=== PATIENT | female | born 1955 | race African-American/Black ===

== ENCOUNTER 2016-02-10 00:32 | Emergency (ER) | payer BC ==
[2016-02-10] MEDS ORDERED: DIAZEPAM INJ 10 MG/2 ML DISP.SYRIN IM ONE (01:33)
--- NOTE | 2016-02-10 01:35 | ER Document Report ---
ED General - General Chief Complaint: Cold Symptoms Stated Complaint: DIFFICULTY BREATHING Time seen by provider: 01:30 Notes: Patient is a 60-year-old female that comes emergency department for chief complaint of 4 days of sinus congestion and pressure and productive cough with yellow sputum production. Patient also states that she has a painful muscle in the right side of her neck and shoulder, states that every time she coughs she gets sharp pain in her shoulder. Patient denies any headache, focal numbness or weakness, visual changes. Past medical history of type II diabetes, patient is a former smoker, patient denies asthma or COPD, patient denies any other medical history. TRAVEL OUTSIDE OF THE [place] IN LAST 30 DAYS: No - Related Data Allergies/Adverse Reactions: dextrose [From Metamucil] Allergy (Verified 06/24/15 10:34) psyllium husk [From Metamucil] Allergy (Verified 06/24/15 10:34) psyllium seed [From Metamucil] Allergy (Verified 06/24/15 10:34) saccharin Allergy (Verified 06/24/15 10:34) sucrose [From Metamucil] Allergy (Verified 06/24/15 10:34) Past Medical History - General Information source: Patient - Social History Smoking Status: Former Smoker Frequency of alcohol use: None Drug Abuse: None Lives with: Family Family History: Reviewed & Not Pertinent - Past Medical History Cardiac Medical History: Reports: Hx Hypertension Endocrine Medical History: Reports: Hx Diabetes Mellitus Type 2 Musculoskeltal Medical History: Reports Hx Arthritis Past Surgical History: Reports: Hx Orthopedic Surgery - Left total knee replacement Review of Systems - Review of Systems Constitutional: No symptoms reported EENT: See HPI Cardiovascular: No symptoms reported Respiratory: See HPI Gastrointestinal: No symptoms reported Genitourinary: No symptoms reported Female Genitourinary: No symptoms reported Musculoskeletal: See HPI Skin: No symptoms reported Hematologic/Lymphatic: No symptoms reported Neurological/Psychological: See HPI Physical Exam - Vital signs Vitals: Temp Pulse Resp BP Pulse Ox 98.5 F 72 20 135/58 H 100 02/10/16 00:35 02/10/16 00:35 02/10/16 00:35 02/10/16 00:35 02/10/16 00:35 - General General appearance: Other - Patient does not appear to be in pain, occasionally she coughs and winces - HEENT Head: Normocephalic, Atraumatic Eyes: Normal Conjunctiva: Normal Extraocular movements intact: Yes Eyelashes: Normal Pupils: PERRL Ears: Normal External canal: Normal Tympanic membrane: Serous effusion - Bilateral. No: Purulent effusion Sinus: Frontal - Tenderness, Maxillary - Tenderness Nasal: Other - Very congested with some rhinorrhea and some swollen turbinates Mouth/Lips: Normal Mucous membranes: Normal Pharynx: Erythema - Very mild Neck: Normal - Respiratory Respiratory status: No respiratory distress. No: Respiratory distress, Labored , Tachypnea Chest status: Tender - Mild generalized tenderness Breath sounds: Nonproductive cough - Very rare nonproductive cough - Cardiovascular Rhythm: Regular. No: Tachycardia Heart sounds: Normal auscultation, S1 appreciated, S2 appreciated - Abdominal Inspection: Normal Tenderness: Nontender. No: Tender, Guarding - Back Back: Tender - Very specific point tenderness in a small area which feels like bunched up muscle fibers in the right trapezius muscle, no cervical tenderness noted, no nuchal rigidity, normal upper and lower extremity range of motion, pain with lateral rotation of the neck, normal distal neurovascular exam bilaterally - Extremities General upper extremity: Normal inspection, Nontender, Normal ROM, Normal strength General lower extremity: Normal inspection, Nontender, Normal ROM, Normal strength - Skin Skin irregularity: Abscess - There is an indurated tender erythematous abscess in the left axilla Course - Re-evaluation Re-evalutation: Patient with a very specific painful muscle with palpation over the left trapezius, no nuchal rigidity, examination and presentation is not consistent with vertebral dissection or carotid dissection, patient much improved after Valium. Chest x-ray is unremarkable, patient has tenderness over frontal and maxillary sinuses, patient is very congested, rhinorrhea with some swollen turbinates. No hypoxia, wheezing, respiratory distress, clear lung auscultation , no tachypnea. Patient incidentally also has an abscess in the left axilla which was drained, dressed, patient will be covered with Augmentin for sinusitis/abscess, discussed primary care follow-up and return precautions, patient also will be given Valium for the spasm in her shoulder, patient states satisfaction agreement with plan. - Vital Signs Vital signs: Temp Pulse Resp BP Pulse Ox 98.4 F 62 18 116/71 99 02/10/16 03:47 02/10/16 03:47 02/10/16 03:47 02/10/16 03:47 02/10/16 03:47 Procedures - Incision and Drainage left axilla Type: Single Anesthetic type: 1% Lidocaine mL's of anesthetic: 5 I&D procedure: Sterile dressing applied Incision Method: Incision made by scalpel Amount/type of drainage: about 5 mL's of purulent material, small amount of bloody material Discharge - Discharge Clinical Impression: Cough, Abscess, Neck pain Sinusitis Qualifiers: Sinusitis location: unspecified location Chronicity: acute Recurrence: non- recurrent Qualified Code(s): J01.90 - Acute sinusitis, unspecified Condition: Stable Disposition: HOME, SELF-CARE Additional Instructions: Chest x-ray does not show any abnormality. Take the Augmentin and Flonase for your sinuses as directed. Keep an absorbing clean dressing over the abscess, clean with soap and water, observed for any signs of worsening infection including spreading redness, swelling, fever, etc. Take the Valium if needed for the muscle spasm in the right trapezius/neck muscles. Follow-up with primary care. Return immediately for any concerning or worsening symptoms. Prescriptions: Amox Tr/Potassium Clavulanate [Augmentin 875-125 Tablet] 1 tab PO BID 7 Days Diazepam [Valium 5 mg Tablet] 1 - 2 tab PO TID #20 tablet
[2016-02-10] MEDS ORDERED: LIDOCAINE 1% INJ-PF (10 MG/ML) 30 ML SDV INJ ONE (02:09)
[2016-02-10] MEDS ORDERED: OXYCODONE-ACETAMINOPHEN 5-325 MG TABLET PO ONE (02:10)
[2016-02-10] MEDS ORDERED: AMOXICILLIN TR/POT CLAVULANATE 500-125 MG TAB PO ONE (03:24)
[2016-02-10] MEDS ORDERED: AMOXICILLIN TRIHYDRATE 500 MG CAPSULE PO ONE (03:24)
[2016-02-10] MEDS ORDERED: HYDROCODONE/ACETAMINOPHEN 5-325 MG 6 TAB/DSPK PO PRN (03:25)
[2016-02-10 03:48] VITALS: BP 116/71
== END 2016-02-10 03:47 | disposition home or self-care (01) ==
LOC: ER 00:32
PROC: 0H9CXZZ Drainage of Left Upper Arm Skin, External Approach (ICD-10-PCS; principal; 2016-02-10)
DX: J01.90 Acute sinusitis, unspecified (principal); L02.412 Cutaneous abscess of left axilla; R09.81 Nasal congestion; R05 Cough; J34.89 Other specified disorders of nose and nasal sinuses; M54.2 Cervicalgia; E11.9 Type 2 diabetes mellitus without complications; I10 Essential (primary) hypertension; Z87.891 Personal history of nicotine dependence; Z88.8 Allergy status to other drugs, medicaments and biological substances
CPT/HCPCS: 99283; 96372; 71020; 10060; J3360

== ENCOUNTER → 2018-11-30 | Outpatient (CLI) | payer BC, MEDICARE ==
--- NOTE | 2018-12-01 07:39 | WOMENS IMAGING REPORT ---
EXAM DESCRIPTION: BILAT SCREENING MAMMO W/CAD COMPLETED DATE/TIME: 11/30/2018 10:12 am REASON FOR STUDY: Z12.31 ENCOUNTER FOR SCREENING MAMMOGRAM FOR MALIGNANT NEOPLASM OF BREAST Z12.31 ENCNTR SCREEN MAMMOGRAM FOR MALIGNANT NEOPLASM OF MIAH COMPARISON: 2014 EXAM PARAMETERS: Standard craniocaudal and mediolateral oblique views of each breast recorded using digital acquisition. Read with the assistance of CAD. .[facility] - [employer] Service Observer Chief Version 9.2 LIMITATIONS: None. FINDINGS: Findings present which are benign by mammographic criteria. No suspicious masses, calcifi cations or architectural distortion. Pertinent benign findings: Old stereotactic biopsy clip upper outer quadrant. Benign bilateral breas t parenchymal and skin calcifications. Benign mammographic findings may include one or more of the following: Smooth masses, popcorn/rim/co arse calcifications, asymmetries, post-procedure changes, and lesions with long-standing stability. IMPRESSION: BENIGN MAMMOGRAPHIC FINDINGS. BIRADS 2 BREAST DENSITY: a. The breasts are almost entirely fatty. BIRAD: ASSESSMENT: 2 BENIGN FINDING(S) RECOMMENDATION: ROUTINE SCREENING Please continue yearly bilateral screening mammography/tomosynthesis in November 2019 COMMENT: The patient has been notified of the results by letter per MQSA requirements. Additional no tification policies are in place for contacting patient with suspicious or incomplete findings. Quality ID #225: The [employer] recommends an annual screening mammogram for women aged 40 years or over. This facility utilizes a reminder system to ensure that all patients receive reminder letters, and/or direct phone calls for appointments. This includes reminders for routine scr eening mammograms, diagnostic mammograms, or other Breast Imaging Interventions when appropriate. Th is patient will be placed in the appropriate reminder system. TECHNICAL DOCUMENTATION: FINDING NUMBER: (1) ASSESSMENT: (1) JOB ID: [id number] [facility]- All Rights Reserved Reading location - IP/workstation name: [email or web address]
== END ==
LOC: WI 09:37
PROVIDERS: ATTEND Physician Assistant
DX: Z12.31 Encounter for screening mammogram for malignant neoplasm of breast (principal)
CPT/HCPCS: 77067

== ENCOUNTER 2020-02-13 12:25 | Inpatient (IN) | payer MEDICARE ==
--- NOTE | 2020-02-13 14:26 | ER Document Report ---
ED Medical Screen (RME) - General Chief Complaint: Leg Swelling Stated Complaint: SHORT OF BREATH,LEG PAIN Time Seen by Provider: 02/13/20 14:18 Primary Care Provider: MARY JO SNYDER PA-C [Primary Care Provider] - Follow up as needed Information source: Patient TRAVEL OUTSIDE OF THE [place] IN LAST 30 DAYS: No - HPI Patient complains to provider of: Shortness of breath Notes: 02/13/20 14:24 Patient here with complaints of shortness of breath. The patient was a admitted for Covid pneumonia earlier last month. She continues to have shortness of breath. She went to see her primary care doctor today and was noted to have O2 saturations in the mid 80s and was sent in for evaluation. The patient is also complaining of right leg pain and swelling. No history of blood clots, no blood thinning medications. Patient was treated with Zithromax and prednisone without any improvement. EXAM: No distress, nontoxic appearing. Lungs clear and equal throughout. Heart sounds normal. Pitting edema to the right lower extremity. An initial examination was made on the patient as part of the triage process, and it was determined a more comprehensive evaluation was necessary. Initial labs were ordered and patient was transferred to another provider in the ED who assumed care and finished evaluation and plan. - Related Data Allergies/Adverse Reactions: dextrose [From Metamucil] Allergy (Verified 06/24/15 10:34) psyllium husk [From Metamucil] Allergy (Verified 06/24/15 10:34) psyllium seed [From Metamucil] Allergy (Verified 06/24/15 10:34) saccharin Allergy (Verified 06/24/15 10:34) sucrose [From Metamucil] Allergy (Verified 06/24/15 10:34) Past Medical History - Social History Chew tobacco use (# tins/day): No Frequency of alcohol use: None Drug Abuse: None - Past Medical History Cardiac Medical History: Reports: Hx Hypertension Endocrine Medical History: Reports: Hx Diabetes Mellitus Type 2 Musculoskeltal Medical History: Reports Hx Arthritis Past Surgical History: Reports: Hx Orthopedic Surgery - Left total knee replacement Physical Exam - Vital signs Vitals: Temp Pulse Resp BP Pulse Ox 98.6 F 85 20 141/87 H 94 02/13/20 13:17 02/13/20 13:17 02/13/20 13:17 02/13/20 13:17 02/13/20 13:17 Course - Vital Signs Vital signs: Temp Pulse Resp BP Pulse Ox 98.6 F 85 20 141/87 H 94 02/13/20 13:17 02/13/20 13:17 02/13/20 13:17 02/13/20 13:17 02/13/20 13:17 Doctor's Discharge - Discharge Referrals: MARY JO SNYDER, PA-C [Primary Care Provider] - Follow up as needed
--- NOTE | 2020-02-13 16:22 | RADIOLOGY REPORT (SQ) ---
EXAM DESCRIPTION: VENOUS UNILATERAL LOWER IMAGES COMPLETED DATE/TIME: 02/13/2020 4:12 pm REASON FOR STUDY: recent covid, pain and swelling right leg COMPARISON: None. TECHNIQUE: Dynamic and static robledo scale and color images acquired of the right leg venous system. S elected spectral images acquired with additional compression and augmentation maneuvers. The contrala teral common femoral vein and saphenofemoral junction were also imaged. Images stored on PACS. LIMITATIONS: None. FINDINGS: COMMON FEMORAL: Normal phasicity, compression and augmentation. No visualized echogenic ma terial on robledo scale. No defects on color images. FEMORAL: There is acute thrombus in the distal femoral vein. POPLITEAL: There is acute thrombus in the popliteal vein pure CALF VESSELS: There is acute calf DVT. GSV and SSV: Not assessed. ANY DEEP VENOUS INSUFFICIENCY: Not evaluated. ANY EVIDENCE OF POPLITEAL CYST: No. OTHER: No other significant finding. CONTRALATERAL COMMON FEMORAL VEIN AND SAPHENOFEMORAL JUNCTION: Normal phasicity, compression and augmentation. No visualized echogenic material on robledo scale. No de fects on color images. IMPRESSION: Acute occlusive DVT from the right calf through the distal femoral vein. COMMENT: This report was called to Dr. Garrett At16:00 on 02/13/2020. The report was called by the [place] scular technologist. TECHNICAL DOCUMENTATION: JOB ID: [id number] 2010 [employer]- All Rights Reserved Reading location - IP/workstation name: [email or web address]
[2020-02-13] MEDS ORDERED: ONDANSETRON HCL INJ/PF 4 MG/2 ML SDV IV ONE (16:33)
[2020-02-13] MEDS ORDERED: MORPHINE SULFATE 10 MG/ML INJ IV ONE (16:33)
[2020-02-13] MEDS ORDERED: HEPARIN SOD (PORCINE) 1,000 UNIT/ML 10 ML VIAL IV ONE (16:34)
[2020-02-13] MEDS ORDERED: HEPARIN SODIUM,PORCINE/D5W 25,000 UNIT/250 ML RTUINJ IV PRN (16:34)
[2020-02-13] MEDS ORDERED: NORMAL SALINE 250 ML IV ONE (16:36)
[2020-02-13 16:40] LABS: HEMATOCRIT 39.8 % (36.0-47.0); HEMOGLOBIN 13.2 g/dL (12.0-15.5); MEAN CORPUSCULAR HEMOGLOBIN 27.2 pg (27.0-33.4); MEAN CORPUSCULAR HGB CONC 33.3 g/dL (32.0-36.0); MEAN CORPUSCULAR VOLUME 82 fl (80-97); PLATELET COUNT 210 10^3/uL (150-450); RED BLOOD COUNT 4.87 10^6/uL (3.72-5.28); RED CELL DISTRIBUTION WIDTH 15.8 % (11.5-14.0); WHITE BLOOD COUNT 7.6 10^3/uL (4.0-10.5)
[2020-02-13 16:47] LABS: INTERNATIONAL RATION (INR) 1.06
[2020-02-13 16:48] LABS: PARTIAL THROMBOPLASTIN TIME 26.9 SEC (23.5-35.8)
[2020-02-13 17:01] LABS: ALKALINE PHOSPHATASE 74 U/L (38-126); ANION GAP 6 (5-19); ASPARTATE AMINO TRANSFERASE 20 U/L (14-36); BILIRUBIN,DIRECT 0.2 mg/dL (0.0-0.4); BILIRUBIN,TOTAL 0.7 mg/dL (0.2-1.3); BLOOD UREA NITROGEN 18 mg/dL (7-20); CALCIUM 9.9 mg/dL (8.4-10.2); CARBON DIOXIDE 31 mmol/L (22-30); CHLORIDE 101 mmol/L (98-107); GLUCOSE 159 mg/dL (75-110); POTASSIUM 3.9 mmol/L (3.6-5.0); TOTAL PROTEIN 7.8 g/dL (6.3-8.2)
[2020-02-13 17:05] LABS: D-DIMER 19.57 ug/mL (0.00-0.50)
[2020-02-13 17:12] LABS: NT PRO BNP 66 pg/mL (<125); TROPONIN I < 0.012 ng/mL
[2020-02-13 17:16] LABS: ABSOLUTE LYMPHOCYTES# (MANUAL) 3.2 10^3/uL (0.5-4.7); ABSOLUTE MONOCYTES # (MANUAL) 0.5 10^3/uL (0.1-1.4); BASOPHILS % (MANUAL) 1 % (0-2); EOSINOPHILS % (MANUAL) 0 % (0-6); LYMPHOCYTES % (MANUAL) 40 % (13-45); MONOCYTES % (MANUAL) 7 % (3-13); SEGMENTED NEUTROPHILS % (MAN) 50 % (42-78); TOTAL CELLS COUNTED 100
[2020-02-13 17:17] LABS: HYPOCHROMASIA 1+
[2020-02-13 17:18] LABS: PLATELET COMMENT ADEQUATE
--- NOTE | 2020-02-13 17:42 | RADIOLOGY REPORT (SQ) ---
EXAM DESCRIPTION: CTA CHEST IMAGES COMPLETED DATE/TIME: 02/13/2020 5:28 pm REASON FOR STUDY: COVID, SOB, Hypoxia COMPARISON: None. TECHNIQUE: CT scan of the chest performed using helical scanning technique with dynamic intravenous contrast injection. Images reviewed with lung, soft tissue and bone windows. Reconstructed coronal and sagittal MPR images reviewed. Additional 3 dimensional post-processing performed to develop Maximal Intensity Projection images ([place] P). All images stored on PACS. All CT scanners at this facility use dose modulation, iterative reconstruction, and/or weight based d osing when appropriate to reduce radiation dose to as low as reasonably achievable (ALARA). [facility]: Dose Right [facility]: CareDose [facility]: Dose Right [facility]: Teradose 4D [facility]: Dtime CONTRAST TYPE AND DOSE: contrast/concentration: Isovue 350.00 mmol/ml; Total Contrast Delivered: 74. 0 ml; Total Saline Delivered: 70.0 ml Contrast bolus optimized for the pulmonary arteries. Not diagnostic for the aorta. RENAL FUNCTION: BUN 18 creatinine 1.09 RADIATION DOSE: CT Rad equipment meets quality standard of care and radiation dose reduction techniq ues were employed. CTDIvol: 11.3 - 15.5 mGy. DLP: 632 mGy-cm. . LIMITATIONS: None. FINDINGS: LUNGS AND PLEURA: Ill-defined ground-glass infiltrates are present bilaterally. No pleura l effusion. No mass. AORTA AND GREAT VESSELS: No aneurysm. Contrast bolus not optimized for the aorta. HEART: No pericardial effusion. No significant coronary artery calcifications. PULMONARY ARTERIES: Emboli are present in the right main pulmonary artery and in lower lobe segmental branches and in right upper lobe branches. HILAR AND MEDIASTINAL STRUCTURES: There are some small nonspecific mediastinal nodes. HARDWARE: None in the chest. UPPER ABDOMEN: Small gallstones are present. THYROID AND OTHER SOFT TISSUES: No masses. No adenopathy. BONES: No acute or significant finding. 3D MIPS: Confirm above findings. OTHER: No other significant finding. IMPRESSION: 1. Acute pulmonary embolism involving right-sided pulmonary arteries as described. Mod erate clot burden. 2. Bilateral ground-glass infiltrates consistent with the history of COVID-19 pneumonia. COMMENT: Quality ID # [id number]: Final reports with documentation of one or more dose reduction techniques (e.g., Automated exposure control, adjustment of the mA and/or kV according to patient size, use of iterative reconstruction technique) TECHNICAL DOCUMENTATION: JOB ID: [id number] 2010 [employer]- All Rights Reserved Reading location - IP/workstation name: [email or web address]
[2020-02-13] MEDS ORDERED: DEXTROSE 50%-WATER 25 GM/50 ML DISP.SYRIN IV PRN ×2 (18:36)
[2020-02-13] MEDS ORDERED: ACETAMINOPHEN 325 MG TABLET PO PRN (18:36)
[2020-02-13] MEDS ORDERED: ONDANSETRON HCL INJ/PF 4 MG/2 ML SDV IV PRN (18:36)
[2020-02-13] MEDS ORDERED: GLUCAGON,HUMAN RECOMB 1 MG INJ IM PRN (18:36)
[2020-02-13] MEDS ORDERED: DEXTROSE 40% GEL 15 GM TUBE PO PRN ×2 (18:36)
--- NOTE | 2020-02-13 18:45 | ER Document Report ---
Entered by BIBIANA LARA SCRIBE 02/13/20 1600 Acting as scribe for:LUIS A BOYD MD ED General - General Chief Complaint: Leg Swelling Stated Complaint: SHORT OF BREATH,LEG PAIN Time Seen by Provider: 02/13/20 14:18 Primary Care Provider: MARY JO SNYDER PA-C [Primary Care Provider] - Follow up as needed Mode of Arrival: Wheelchair Information source: Patient Notes: This 64 year old female patient with a history of hypertension and type 2 diabetes mellitus presents to the ED today with complaints of shortness of breath and RLE pain and swelling for the past x2-3 days. Patient states that she was seen by her PCP today and there were some concerns about her low O2 saturation in the 80s, so she was advised to come to the ED for further evaluation. Patient O2 sats here were 94% on room air. She also reports of productive cough. Denies chest pain. Denies taking any blood thinners. Patient states that she tested positive for COVID on 01/11, was diagnosed with COVID PNA on 01/19, and was admitted twice at [facility] last month. She has not been retested since then. Per external pharmacy records, patient was started on Prednisone and a Z-naldo on 02/09. TRAVEL OUTSIDE OF THE [place] IN LAST 30 DAYS: No - Related Data Allergies/Adverse Reactions: dextrose [From Metamucil] Allergy (Verified 02/13/20 16:20) psyllium husk [From Metamucil] Allergy (Verified 02/13/20 16:20) psyllium seed [From Metamucil] Allergy (Verified 02/13/20 16:20) saccharin Allergy (Verified 02/13/20 16:20) sucrose [From Metamucil] Allergy (Verified 02/13/20 16:20) Past Medical History - General Information source: Patient, [facility] Records - Social History Smoking Status: Former Smoker Cigarette use (# per day): No Chew tobacco use (# tins/day): No Smoking Education Provided: No Frequency of alcohol use: None Drug Abuse: None Family History: Reviewed & Not Pertinent - Past Medical History Cardiac Medical History: Reports: Hx Hypertension Endocrine Medical History: Reports: Hx Diabetes Mellitus Type 2 Musculoskeletal Medical History: Reports Hx Arthritis Past Surgical History: Reports: Hx Orthopedic Surgery - Left total knee replacement Review of Systems - Review of Systems Constitutional: See HPI, Recent illness EENT: No symptoms reported Cardiovascular: See HPI. denies: Chest pain Respiratory: See HPI, Cough, Short of breath, Sputum Gastrointestinal: No symptoms reported Genitourinary: No symptoms reported Female Genitourinary: No symptoms reported Musculoskeletal: See HPI, Muscle pain, Leg swelling Skin: No symptoms reported Hematologic/Lymphatic: No symptoms reported Neurological/Psychological: No symptoms reported -: Yes All other systems reviewed and negative Physical Exam - Vital signs Vitals: Temp Pulse Resp BP Pulse Ox 98.6 F 85 20 141/87 H 94 02/13/20 13:17 02/13/20 13:17 02/13/20 13:17 02/13/20 13:17 02/13/20 13:17 - General General appearance: Alert In distress: None - HEENT Head: Normocephalic, Atraumatic Eyes: Normal Extraocular movements intact: Yes Pupils: PERRL Neck: Normal, Supple - Respiratory Respiratory status: No respiratory distress Chest status: Nontender Breath sounds: Decreased air movement - Diminished breath sounds in the bases, Wheezing Chest palpation: Normal - Cardiovascular Rhythm: Regular Heart sounds: Normal auscultation Murmur: No - Abdominal Inspection: Obese Distension: No distension Bowel sounds: Normal Tenderness: Nontender - Abdomen soft Organomegaly: No organomegaly - Rectal Stool: Heme negative, Other - Brown-colored stool Notes: Operations Tech present - Back Back: Normal, Nontender - Extremities General upper extremity: Normal inspection General lower extremity: Edema - Right lower leg from the knee down is swollen and tense; nonpitting edema present. Left lower leg is not swollen Calf: Tender - Right calf is tender to palpation - Neurological Neuro grossly intact: Yes Orientation: AAOx4 [place] Coma Scale Eye Opening: Spontaneous Donna Coma Scale Verbal: Oriented Donna Coma Scale Motor: Obeys Commands Donna Coma Scale Total: 15 - Psychological Associated symptoms: Normal affect, Normal mood - Skin Skin Temperature: Warm Skin Moisture: Dry Skin Color: Normal Course - Re-evaluation Re-evalutation: 02/13/20 18:45 Patient and less pain after receiving IV morphine. Patient has DVT and pulmonary embolism on scans today. Patient also is positive for COVID-19 with viral pneumonia. - Vital Signs Vital signs: Temp Pulse Resp BP Pulse Ox 98.6 F 85 20 141/87 H 94 02/13/20 13:17 02/13/20 13:17 02/13/20 13:17 02/13/20 13:17 02/13/20 13:17 02/13/20 18:46 Vital signs stable with a pulse ox of 94% - Laboratory Results Result Diagrams: 02/13/20 16:09 02/13/20 16:09 Laboratory Results Interpreted: 02/13/20 02/13/20 02/13/20 16:09 16:09 16:09 RDW 15.8 H D-Dimer 19.57 H Carbon Dioxide 31 H Est GFR (MDRD) Non-Af 50 L Glucose 159 H Critical Laboratory Results Reviewed: Yes Attending or Supervising Physician who Reviewed Labs: LUIS A BOYD - COVID-19 positive, viral Covid pneumonia, - Radiology Results Radiology Results Interpreted: 02/13/20 17:50 Chest/Abdomen CTA 02/13/20 14:23 IMPRESSION: 1. Acute pulmonary embolism involving right-sided pulmonary arteries as described. Moderate clot burden. 2. Bilateral ground-glass infiltrates consistent with the history of COVID-19 pneumonia. Venous Doppler Study 02/13/20 14:23 IMPRESSION: Acute occlusive DVT from the right calf through the distal femoral vein. 02/13/20 18:46 Venous Doppler study shows an acute occlusive DVT in the right calf through the distal femoral vein. Chest abdomen CTA shows acute pulmonary embolism of the right side pulmonary arteries moderate clot burden bilateral groundglass infiltrates consistent with COVID-19 pneumonia. Critical Radiology Results Reviewed: Yes Attending or Supervising Physician who Reviewed Radiology: LUIS A BOYD - EKG Interpretation by Me Additional EKG results interpreted by me: 02/13/20 16:53 Normal sinus rhythm rate of 85 left axis deviation [place] interval within normal range QRS within normal range QT interval within normal range no evidence for STEMI. - Consults Dr. Dunaway, Hospitalist Time consulted: 17:51 Consulted provider: will come to ER Critical Care Note - Critical Care Note Total time excluding time spent on procedures (mins): 40 - Management of patient with Covid 19 pneumonia, DVT in right lower extremity and pulmonary embolism in the right lung. Patient also treated for pain management as well Discharge - Discharge Clinical Impression: Right leg DVT, Pulmonary embolism, COVID-19, Viral pneumonia, Management of patient with Covid 19 pneumonia, DVT in right lower extremity and pulmonary emb olism in the right lung. Patient also treated for you have been seen in the Emergency Department (ED) for a headache. Please use Tylenol (acetaminophen) or Motrin (ibuprofen) as needed for symptoms, but only as written on the box. As we have discussed, please follow up with your primary care doctor as soon as possible regarding today's ED visit and your headache symptoms. Call your doctor or return to the ED if you have a worsening headache, sudden and severe headache, confusion, slurred speech, facial droop, weakness or numbness in any arm or leg, extreme fatigue, or other symptoms that concern you. Pain management as well Condition: Fair Disposition: ADMITTED INPATIENT Admitting Provider: Emelyn (Hospitalist) Unit Admitted: Telemetry Referrals: MARY JO SNYDER PA-C [Primary Care Provider] - Follow up as needed I personally performed the services described in the documentation, reviewed and edited the documentation which was dictated to the scribe in my presence, and it accurately records my words and actions.
--- NOTE | 2020-02-13 18:49 | PDOC H&P ---
History of Present Illness Admission Date/PCP: MARY JO SNYDER PA-C History of Present Illness: CHRISTO LEMA is a 64 year old female who has been sick since January 12, 2020. She said that she went to see her eye doctor and somehow wind up getting tested there and a lot of testing positive for coronavirus. She was home for about a week and then she started having worsening shortness of breath. This went on for couple of days and finally she went to the hospital in [place]. She said she was there for 5 days and was sent home. She is not sure what medication she was given, but she knows she was given steroids because it made her blood sugar go up. She is not sure what steroid it was. She came home for a few days and the home health nurse came to see her and told her she needed to go back to the hospital. She was back in the hospital in [place] for a few more days and got some more steroids. She was home for a few days after the second hospitalization, and then after [place] she went to see her primary care provider who put her on some prednisone and a azithromycin. She went back to see her primary care provider was still little short of breath, and she said her right leg has been hurting. Her primary care provider was concerned about development of a blood clot and so sent her to the ER for evaluation. She indeed has a right lower extremity DVT, and her chest CT was positive for bilateral pulmonary emboli without evidence of right heart strain. She was found to have bilateral groundglass opacities on chest CT. Her oxygen saturations on room air were in the low 90s and she has a very mild visible dyspnea. Past Medical History Cardiac Medical History: Reports: Hypertension Endocrine Medical History: Reports: Diabetes Mellitus Type 2 Musculoskeltal Medical History: Reports: Arthritis Past Surgical History Past Surgical History: Reports: Orthopedic Surgery - Left total knee replacement Social History Smoking Status: Former Smoker Electronic Cigarette use?: No Family History Family History: Reviewed & Not Pertinent, Arthritis, DM, Hyperlipidemia, Hypertension Parental Family History Reviewed: Yes Children Family History Reviewed: Yes Sibling(s) Family History Reviewed.: Yes Medication/Allergy Home Medications: Oxycodone HCl/Acetaminophen [Percocet 5-325 mg Tablet] 1 - 2 tab PO Q4H PRN #10 tablet 06/24/15 Amox Tr/Potassium Clavulanate [Augmentin 875-125 Tablet] 1 tab PO BID 7 Days tablet 02/10/16 Diazepam [Valium 5 mg Tablet] 1 - 2 tab PO TID #20 tablet 02/10/16 Allergies/Adverse Reactions: dextrose [From Metamucil] Allergy (Verified 02/13/20 16:20) psyllium husk [From Metamucil] Allergy (Verified 02/13/20 16:20) psyllium seed [From Metamucil] Allergy (Verified 02/13/20 16:20) saccharin Allergy (Verified 02/13/20 16:20) sucrose [From Metamucil] Allergy (Verified 02/13/20 16:20) Review of Systems All systems: reviewed and no additional remarkable complaints except as stated - All systems were reviewed and were negative except as noted in the HPI Physical Exam Vital Signs: Temp Pulse Resp BP Pulse Ox 98.6 F 85 20 141/87 H 94 02/13/20 13:17 02/13/20 13:17 02/13/20 13:17 02/13/20 13:17 02/13/20 13:17 Intake & Output 02/12/20 02/13/20 02/14/20 06:59 06:59 06:59 Weight 124.2 kg General appearance: PRESENT: cooperative, disheveled, mild distress, morbidly obese Head exam: PRESENT: atraumatic, normocephalic Eye exam: PRESENT: EOMI, PERRLA. ABSENT: conjunctival injection, nystagmus, scleral icterus Ear exam: PRESENT: normal external ear exam Mouth exam: PRESENT: dry mucosa, neck supple Throat exam: ABSENT: post pharyngeal erythema Neck exam: PRESENT: full ROM. ABSENT: carotid bruit, JVD, lymphadenopathy, meningismus, tenderness, thyromegaly Respiratory exam: PRESENT: crackles - Bibasilar, symmetrical, tachypnea, unlabored. ABSENT: accessory muscle use, chest wall tenderness, prolonged expiratory phas, rhonchi, wheezes Cardiovascular exam: PRESENT: RRR, +S1, +S2 Pulses: PRESENT: normal carotid pulses Vascular exam: PRESENT: normal capillary refill GI/Abdominal exam: PRESENT: normal bowel sounds, soft. ABSENT: distended, guarding, rebound, tenderness Extremities exam: PRESENT: pedal edema, +2 edema - Right lower extremity. ABSENT: clubbing Musculoskeletal exam: PRESENT: normal inspection. ABSENT: deformity Neurological exam: PRESENT: alert, awake, oriented to person, oriented to place, oriented to time, oriented to situation, CN II-XII grossly intact. ABSENT: motor sensory deficit Psychiatric exam: PRESENT: appropriate affect, normal mood Skin exam: PRESENT: dry, warm Results Laboratory Results: 02/13/20 16:09 02/13/20 16:09 02/13/20 02/13/20 16:09 16:09 WBC 7.6 RBC 4.87 Hgb 13.2 Hct 39.8 MCV 82 MCH 27.2 MCHC 33.3 RDW 15.8 H Plt Count 210 Seg Neutrophils % Not Reportable Sodium 138.4 Potassium 3.9 Chloride 101 Carbon Dioxide 31 H Anion Gap 6 BUN 18 Creatinine 1.09 Est GFR ( Amer) > 60 Glucose 159 H Calcium 9.9 Total Bilirubin 0.7 AST 20 Alkaline Phosphatase 74 Total Protein 7.8 Albumin 4.0 02/13/20 16:09 Troponin I < 0.012 NT-Pro-B Natriuret Pep 66 Impressions: Chest/Abdomen CTA 02/13/20 14:23 IMPRESSION: 1. Acute pulmonary embolism involving right-sided pulmonary arteries as described. Moderate clot burden. 2. Bilateral ground-glass infiltrates consistent with the history of COVID-19 pneumonia. Venous Doppler Study 02/13/20 14:23 IMPRESSION: Acute occlusive DVT from the right calf through the distal femoral vein. Assessment and Plan - Diagnosis (1) Pneumonia due to COVID-19 virus Is this a current diagnosis for this admission?: Yes (2) Right leg DVT Qualifiers: Affected thrombotic vein of extremity: popliteal Chronicity: acute Qualified Code(s): I82.431 - Acute embolism and thrombosis of right popliteal vein Is this a current diagnosis for this admission?: Yes (3) Bilateral pulmonary embolism Is this a current diagnosis for this admission?: Yes (4) Morbid obesity with BMI of 40.0-44.9, adult Is this a current diagnosis for this admission?: Yes (5) Hypertension Qualifiers: Hypertension type: essential hypertension Qualified Code(s): I10 - Essential (primary) hypertension Is this a current diagnosis for this admission?: Yes (6) Type 2 diabetes mellitus Qualifiers: Diabetes mellitus chcf insulin use: without rn long term care use Diabetes mellitus complication status: without complication Qualified Code(s): E11.9 - Type 2 diabetes mellitus without complications Is this a current diagnosis for this admission?: Yes - Plan Summary Summary: We will treat her with the MATH+ protocol, consisting of ivermectin, IV Solu- Medrol, vitamin B complex, vitamin C, vitamin D3, zinc, and melatonin. We will also give her some doxycycline to treat any superimposed bacterial infection, and also for its anti-inflammatory benefits. Supplemental O2 as needed to maintain SPO2 greater than 90%. Oxygen saturations in the ER for as low as 90% at rest. We will start her on Lovenox for her DVT and pulmonary emboli. We will probably keep her on this for a couple of days and then transition her over to Eliquis or Xarelto. We will monitor for complications. We anticipate her bl ood sugar will increase on the IV steroids, so we will start her on an insulin sliding scale. - Time Time Spent with patient: 35 or more minutes Anticipated Discharge Disposition: Unknown Anticipated Discharge Timeframe: Unknown - Inpatient Certification Based on my medical assessment, after consideration of the patient's comorbidities, presenting symptoms, or acuity I expect that the services needed warrant INPATIENT care.: Yes Medical Necessity: Failure to Improve With Outpatient Therapy, Significant Comorbidiites Make Outpatient Treatment Too Risky, Need Close Monitoring Due to Risk of Patient Decompensation, Need For Continuous Telemetry Monitoring, Need for IV Antibiotics, Risk of Complication if Not Cared For in Hospital
--- NOTE | 2020-02-13 18:55 | Progress Note ---
Provider Note Provider Note: Attempted to call the patient's niece at 2 different numbers, at the patient's request. No answer at either number. We will try again later.
[2020-02-13] MEDS ORDERED: IVERMECTIN 3 MG TABLET PO ONE (20:00)
[2020-02-13] MEDS: ENOXAPARIN SODIUM INJ 120 MG/0.8 ML DISP.SYRIN SUBCUT SCH (21:59)
[2020-02-13] MEDS: MELATONIN 5 MG TABLET PO SCH (21:59)
[2020-02-13] MEDS: INSULIN LISPRO 100 UNIT/ML 3 ML VIAL SUBCUT SCH (21:59)
[2020-02-13] MEDS: METHYLPREDNISOLONE INJ 40 MG/1 ML SDV IV SCH ×2 (22:00)
[2020-02-13] MEDS: DOXYCYCLINE HYCLATE 100 MG in DEXTROSE 5%-WATER 250 ML IV SCH (23:41)
[2020-02-14 00:30] LABS: APPEARANCE,URINE CLEAR; BILIRUBIN,URINE NEGATIVE (NEGATIVE); COLOR,URINE YELLOW; GLUCOSE, URINE NEGATIVE (NEGATIVE); KETONES,URINE NEGATIVE (NEGATIVE); LEUKOCYTE ESTERASE,URINE TRACE (NEGATIVE); NITRITE,URINE NEGATIVE (NEGATIVE); PROTEIN,URINE NEGATIVE (NEGATIVE); URINE SPECIFIC GRAVITY 1.048; UROBILINOGEN,URINE NEGATIVE mg/dL (<2.0)
[2020-02-14 07:40] LABS: ABSOLUTE BASOPHILS # (AUTO) 0.1 10^3/uL (0.0-0.2); ABSOLUTE LYMPHOCYTES (AUTO) 1.1 10^3/uL (0.5-4.7); ABSOLUTE MONOCYTES (AUTO) 0.2 10^3/uL (0.1-1.4); ABSOLUTE NEUT (AUTO) 4.8 10^3/uL (1.7-8.2); BASOPHILS % (AUTO) 1.1 % (0-2); EOSINOPHILS % (AUTO) 0.1 % (0-6); HEMATOCRIT 38.4 % (36.0-47.0); HEMOGLOBIN 12.6 g/dL (12.0-15.5); LYMPHOCYTES % (AUTO) 18.2 % (13-45); MEAN CORPUSCULAR HGB CONC 32.9 g/dL (32.0-36.0); MEAN CORPUSCULAR VOLUME 82 fl (80-97); MONOCYTES % (AUTO) 2.5 % (3-13); PLATELET COUNT 207 10^3/uL (150-450); RED BLOOD COUNT 4.68 10^6/uL (3.72-5.28); RED CELL DISTRIBUTION WIDTH 15.7 % (11.5-14.0); SEGMENTED NEUTROPHILS % (AUTO) 78.1 % (42-78); TOTAL CELLS COUNTED % (AUTO) 100 %; WHITE BLOOD COUNT 6.1 10^3/uL (4.0-10.5)
[2020-02-14 08:18] LABS: ANION GAP 9 (5-19); BLOOD UREA NITROGEN 16 mg/dL (7-20); C-REACTIVE PROTEIN 33.9 mg/L (<10.0); CALCIUM 9.7 mg/dL (8.4-10.2); CARBON DIOXIDE 25 mmol/L (22-30); CHLORIDE 101 mmol/L (98-107); GLUCOSE 306 mg/dL (75-110); POTASSIUM 4.7 mmol/L (3.6-5.0)
[2020-02-14] MEDS: INSULIN LISPRO 100 UNIT/ML 3 ML VIAL SUBCUT SCH ×4 (09:04→22:03)
[2020-02-14] MEDS: CHOLECALCIFEROL (D3) 1,000 UNIT (25 MCG) TABLET PO SCH ×2 (09:04→09:13)
[2020-02-14] MEDS: VITAMIN B COMPLEX TABLET PO SCH ×2 (09:04→09:09)
[2020-02-14] MEDS: METHYLPREDNISOLONE INJ 40 MG/1 ML SDV IV SCH ×2 (09:06→22:06)
[2020-02-14] MEDS: ENOXAPARIN SODIUM INJ 120 MG/0.8 ML DISP.SYRIN SUBCUT SCH ×2 (09:06→22:04)
[2020-02-14] MEDS: ASCORBIC ACID 500 MG TABLET PO SCH ×4 (09:09→23:46)
[2020-02-14] MEDS: ZINC SULFATE 220 MG CAPSULE PO SCH ×2 (09:09→09:14)
[2020-02-14] MEDS: DOXYCYCLINE HYCLATE 100 MG in DEXTROSE 5%-WATER 250 ML IV SCH ×2 (09:11→22:07)
--- NOTE | 2020-02-14 10:30 | EKG REPORT ---
SEVERITY:- NORMAL ECG - SINUS RHYTHM : Confirmed by: Naomi Burnham 14-Feb-2020 10:29:18
--- NOTE | 2020-02-14 16:26 | PDOC PROGRESS REPORT ---
Subjective Date:: 02/14/20 Subjective:: No adverse events overnight. No new complaints. She says she is feeling a lot more comfortable regarding her breathing today. She says her right leg still hurts a little bit but mostly whenever she tries to bear weight on it. She has been able to sleep. She said this is the best she has felt in several days. Reason For Visit: COVID 19,PE,DVT Physical Exam Vital Signs: Temp Pulse Resp BP Pulse Ox 97.9 F 81 17 127/78 H 92 02/14/20 10:00 02/14/20 07:55 02/14/20 07:55 02/14/20 07:55 02/14/20 07:55 Intake & Output 02/13/20 02/14/20 02/15/20 06:59 06:59 06:59 Intake Total 857 693 Output Total 425 Balance 432 693 Weight 124.3 kg General appearance: PRESENT: cooperative, disheveled, mild distress, morbidly o bese Respiratory exam: PRESENT: crackles - Bibasilar, symmetrical, unlabored. ABSENT: accessory muscle use, chest wall tenderness, prolonged expiratory phase, rhonchi, wheezes, tachypnea Cardiovascular exam: PRESENT: RRR, +S1, +S2 Pulses: PRESENT: normal carotid pulses Vascular exam: PRESENT: normal capillary refill GI/Abdominal exam: PRESENT: normal bowel sounds, soft. ABSENT: distended, guarding, rebound, tenderness Extremities exam: PRESENT: pedal edema, +2 edema - Right lower extremity. ABSENT: clubbing Musculoskeletal exam: PRESENT: normal inspection. ABSENT: deformity Neurological exam: PRESENT: alert, awake, oriented to person, oriented to place, oriented to time, oriented to situation Psychiatric exam: PRESENT: appropriate affect, normal mood Skin exam: PRESENT: dry, warm Results Laboratory Results: 02/14/20 07:15 02/14/20 07:15 02/13/20 02/13/20 02/13/20 16:09 16:09 16:09 WBC 7.6 RBC 4.87 Hgb 13.2 Hct 39.8 MCV 82 MCH 27.2 MCHC 33.3 RDW 15.8 H Plt Count 210 Seg Neutrophils % Not Reportable Sodium 138.4 Potassium 3.9 Chloride 101 Carbon Dioxide 31 H Anion Gap 6 BUN 18 Creatinine 1.09 Est GFR ( Amer) > 60 Glucose 159 H Lactic Acid Calcium 9.9 Ferritin 186.00 Total Bilirubin 0.7 AST 20 Alkaline Phosphatase 74 C-Reactive Protein 22.0 H Total Protein 7.8 Albumin 4.0 Urine Color Urine Appearance Urine pH Ur Specific [place] Urine Protein Urine Glucose (UA) Urine Ketones Urine Blood Urine Nitrite Ur Leukocyte Esterase Urine WBC (Auto) Urine RBC (Auto) 02/13/20 02/13/20 02/14/20 18:00 20:50 07:15 WBC RBC Hgb Hct MCV MCH MCHC RDW Plt Count Seg Neutrophils % Sodium 135.1 L Potassium 4.7 Chloride 101 Carbon Dioxide 25 Anion Gap 9 BUN 16 Creatinine 0.87 Est GFR ( Amer) > 60 Glucose 306 H Lactic Acid 1.2 Calcium 9.7 Ferritin 177.00 Total Bilirubin AST Alkaline Phosphatase C-Reactive Protein 33.9 H Total Protein Albumin Urine Color YELLOW Urine Appearance CLEAR Urine pH 5.0 Ur Specific [place] 1.048 Urine Protein NEGATIVE Urine Glucose (UA) NEGATIVE Urine Ketones NEGATIVE Urine Blood NEGATIVE Urine Nitrite NEGATIVE Ur Leukocyte Esterase TRACE H Urine WBC (Auto) 3 Urine RBC (Auto) 1 02/14/20 07:15 WBC 6.1 RBC 4.68 Hgb 12.6 Hct 38.4 MCV 82 MCH 27.0 MCHC 32.9 RDW 15.7 H Plt Count 207 Seg Neutrophils % 78.1 H Sodium Potassium Chloride Carbon Dioxide Anion Gap BUN Creatinine Est GFR ( Amer) Glucose Lactic Acid Calcium Ferritin Total Bilirubin AST Alkaline Phosphatase C-Reactive Protein Total Protein Albumin Urine Color Urine Appearance Urine pH Ur Specific Lov[place] Urine Protein Urine Glucose (UA) Urine Ketones Urine Blood Urine Nitrite Ur Leukocyte Esterase Urine WBC (Auto) Urine RBC (Auto) 02/13/20 16:09 Troponin I < 0.012 NT-Pro-B Natriuret Pep 66 Impressions: Chest/Abdomen CTA 02/13/20 14:23 IMPRESSION: 1. Acute pulmonary embolism involving right-sided pulmonary arteries as described. Moderate clot burden. 2. Bilateral ground-glass infiltrates consistent with the history of COVID-19 pneumonia. Venous Doppler Study 02/13/20 14:23 IMPRESSION: Acute occlusive DVT from the right calf through the distal femoral vein. Assessment and Plan - Diagnosis (1) Pneumonia due to COVID-19 virus Is this a current diagnosis for this admission?: Yes (2) Right leg DVT Qualifiers: Affected thrombotic vein of extremity: popliteal Chronicity: acute Qualified Code(s): I82.431 - Acute embolism and thrombosis of right popliteal vein Is this a current diagnosis for this admission?: Yes (3) Bilateral pulmonary embolism Is this a current diagnosis for this admission?: Yes (4) Morbid obesity with BMI of 40.0-44.9, adult Is this a current diagnosis for this admission?: Yes (5) Hypertension Qualifiers: Hypertension type: essential hypertension Qualified Code(s): I10 - Essential (primary) hypertension Is this a current diagnosis for this admission?: Yes (6) Type 2 diabetes mellitus Qualifiers: Diabetes mellitus predatory animal exterminator insulin use: without predatory animal exterminator use Diabetes mellitus complication status: without complication Qualified Code(s): E11.9 - Type 2 diabetes mellitus without complications Is this a current diagnosis for this admission?: Yes - Plan Summary Summary: We will continue the MATH+ protocol, consisting of ivermectin, IV Solu-Medrol, vitamin B complex, vitamin C, vitamin D3, zinc, and melatonin. Continue doxycycline. Supplemental O2 as needed to maintain SPO2 greater than 90%. Oxygen saturations in the ER for as low as 90% at rest. Continue Lovenox for a couple of days and then transition her over to Eliquis or Xarelto. We will monitor for complications. Continue sliding scale insulin and adjust as necessary. - Time Time Spent with patient: 15-24 minutes Anticipated Discharge Disposition: Unknown Anticipated Discharge Timeframe: Unknown
[2020-02-14] MEDS: MELATONIN 5 MG TABLET PO SCH (22:06)
[2020-02-15] MEDS: ASCORBIC ACID 500 MG TABLET PO SCH ×3 (06:12→17:27)
[2020-02-15 06:51] LABS: HEMATOCRIT 36.8 % (36.0-47.0); HEMOGLOBIN 12.1 g/dL (12.0-15.5); MEAN CORPUSCULAR HEMOGLOBIN 26.7 pg (27.0-33.4); MEAN CORPUSCULAR HGB CONC 32.8 g/dL (32.0-36.0); MEAN CORPUSCULAR VOLUME 81 fl (80-97); PLATELET COUNT 206 10^3/uL (150-450); RED BLOOD COUNT 4.53 10^6/uL (3.72-5.28); RED CELL DISTRIBUTION WIDTH 15.6 % (11.5-14.0)
[2020-02-15 07:20] LABS: ANION GAP 8 (5-19); BLOOD UREA NITROGEN 17 mg/dL (7-20); C-REACTIVE PROTEIN 22.3 mg/L (<10.0); CALCIUM 9.6 mg/dL (8.4-10.2); CARBON DIOXIDE 25 mmol/L (22-30); CHLORIDE 101 mmol/L (98-107); GLUCOSE 306 mg/dL (75-110); POTASSIUM 4.9 mmol/L (3.6-5.0)
[2020-02-15] MEDS: INSULIN LISPRO 100 UNIT/ML 3 ML VIAL SUBCUT SCH ×5 (08:13→15:52)
[2020-02-15] MEDS: CHOLECALCIFEROL (D3) 1,000 UNIT (25 MCG) TABLET PO SCH (09:36)
[2020-02-15] MEDS: VITAMIN B COMPLEX TABLET PO SCH (09:37)
[2020-02-15] MEDS: ENOXAPARIN SODIUM INJ 120 MG/0.8 ML DISP.SYRIN SUBCUT SCH (09:37)
[2020-02-15] MEDS: METHYLPREDNISOLONE INJ 40 MG/1 ML SDV IV SCH (09:38)
[2020-02-15] MEDS: DOXYCYCLINE HYCLATE 100 MG in DEXTROSE 5%-WATER 250 ML IV SCH (09:38)
[2020-02-15] MEDS ORDERED: IVERMECTIN 3 MG TABLET PO ONE (10:00)
[2020-02-15 12:15] LABS: APPEARANCE,URINE CLEAR; BILIRUBIN,URINE NEGATIVE (NEGATIVE); COLOR,URINE YELLOW; GLUCOSE, URINE >=500 mg/dL (NEGATIVE); KETONES,URINE NEGATIVE (NEGATIVE); LEUKOCYTE ESTERASE,URINE NEGATIVE (NEGATIVE); NITRITE,URINE NEGATIVE (NEGATIVE); PROTEIN,URINE NEGATIVE (NEGATIVE); URINE SPECIFIC GRAVITY 1.018; UROBILINOGEN,URINE NEGATIVE mg/dL (<2.0)
--- NOTE | 2020-02-15 17:29 | PDOC PROGRESS REPORT ---
Subjective Date:: 02/15/20 Subjective:: No adverse events overnight. No new complaints. She is on room air her oxygen saturations are in the upper 90s. She feels much better. The pain in her leg is improved. No chest pain. Reason For Visit: COVID 19,PE,DVT Physical Exam Vital Signs: Temp Pulse Resp BP Pulse Ox 98.1 F 83 18 168/84 H 99 02/15/20 15:35 02/15/20 15:35 02/15/20 15:35 02/15/20 15:35 02/15/20 15:35 Intake & Output 02/14/20 02/15/20 02/16/20 06:59 06:59 06:59 Intake Total 857 2403 730 Output Total 425 Balance 432 2403 730 Weight 124.3 kg 125.3 kg General appearance: PRESENT: cooperative, disheveled, mild distress, morbidly obese Respiratory exam: PRESENT: crackles - Bibasilar, symmetrical, unlabored. ABSENT: accessory muscle use, chest wall tenderness, prolonged expiratory phase, rhonchi, wheezes, tachypnea Cardiovascular exam: PRESENT: RRR, +S1, +S2 Pulses: PRESENT: normal carotid pulses Vascular exam: PRESENT: normal capillary refill GI/Abdominal exam: PRESENT: normal bowel sounds, soft. ABSENT: distended, guarding, rebound, tenderness Extremities exam: PRESENT: pedal edema, +2 edema - Right lower extremity. ABSENT: clubbing Musculoskeletal exam: PRESENT: normal inspection. ABSENT: deformity Neurological exam: PRESENT: alert, awake, oriented to person, oriented to place, oriented to time, oriented to situation Psychiatric exam: PRESENT: appropriate affect, normal mood Skin exam: PRESENT: dry, warm Results Laboratory Results: 02/15/20 05:40 02/15/20 05:40 02/15/20 02/15/20 02/15/20 05:40 05:40 11:58 WBC 6.0 RBC 4.53 Hgb 12.1 Hct 36.8 MCV 81 MCH 26.7 L MCHC 32.8 RDW 15.6 H Plt Count 206 Sodium 134.4 L Potassium 4.9 Chloride 101 Carbon Dioxide 25 Anion Gap 8 BUN 17 Creatinine 0.66 Est GFR ( Amer) > 60 Glucose 306 H Calcium 9.6 Ferritin 165.00 C-Reactive Protein 22.3 H Urine Color YELLOW Urine Appearance CLEAR Urine pH 6.0 Ur Specific [place] 1.018 Urine Protein NEGATIVE Urine Glucose (UA) >=500 H Urine Ketones NEGATIVE Urine Blood NEGATIVE Urine Nitrite NEGATIVE Ur Leukocyte Esterase NEGATIVE Urine WBC (Auto) 1 Urine RBC (Auto) 0 02/13/20 16:09 Troponin I < 0.012 NT-Pro-B Natriuret Pep 66 Impressions: Chest/Abdomen CTA 02/13/20 14:23 IMPRESSION: 1. Acute pulmonary embolism involving right-sided pulmonary arteries as described. Moderate clot burden. 2. Bilateral ground-glass infiltrates consistent with the history of COVID-19 pneumonia. Venous Doppler Study 02/13/20 14:23 IMPRESSION: Acute occlusive DVT from the right calf through the distal femoral vein. Assessment and Plan - Diagnosis (1) Pneumonia due to COVID-19 virus Is this a current diagnosis for this admission?: Yes (2) Right leg DVT Qualifiers: Affected thrombotic vein of extremity: popliteal Chronicity: acute Qualified Code(s): I82.431 - Acute embolism and thrombosis of right popliteal vein Is this a current diagnosis for this admission?: Yes (3) Bilateral pulmonary embolism Is this a current diagnosis for this admission?: Yes (4) Morbid obesity with BMI of 40.0-44.9, adult Is this a current diagnosis for this admission?: Yes (5) Hypertension Qualifiers: Hypertension type: essential hypertension Qualified Code(s): I10 - Essential (primary) hypertension Is this a current diagnosis for this admission?: Yes (6) Type 2 diabetes mellitus Qualifiers: Diabetes mellitus chcf insulin use: without oil heaterman use Diabetes mellitus complication status: without complication Qualified Code(s): E11.9 - Type 2 diabetes mellitus without complications Is this a current diagnosis for this admission?: Yes - Plan Summary Summary: We will continue the MATH+ protocol, consisting of ivermectin, IV Solu-Medrol, vitamin B complex, vitamin C, vitamin D3, zinc, and melatonin. Continue doxycycline. Now on room air, will start tapering steroids tomorrow. Continue Lovenox for another day and then transition her over to Eliquis or Xarelto. We will monitor for complications. Continue sliding scale insulin and adjust as necessary. - Time Time Spent with patient: 15-24 minutes Anticipated Discharge Disposition: Home, Self Care Anticipated Discharge Timeframe: within 48 hours
[2020-02-16] MEDS: ASCORBIC ACID 500 MG TABLET PO SCH ×5 (00:12→23:25)
[2020-02-16] MEDS: ENOXAPARIN SODIUM INJ 120 MG/0.8 ML DISP.SYRIN SUBCUT SCH ×3 (00:12→21:36)
[2020-02-16] MEDS: INSULIN LISPRO 100 UNIT/ML 3 ML VIAL SUBCUT SCH ×8 (00:12→21:35)
[2020-02-16] MEDS: METHYLPREDNISOLONE INJ 40 MG/1 ML SDV IV SCH ×3 (00:12→21:36)
[2020-02-16] MEDS: MELATONIN 5 MG TABLET PO SCH ×2 (00:12→21:36)
[2020-02-16] MEDS: DOXYCYCLINE HYCLATE 100 MG in DEXTROSE 5%-WATER 250 ML IV SCH ×3 (00:13→21:34)
[2020-02-16 08:06] LABS: ABSOLUTE BASOPHILS # (AUTO) 0.2 10^3/uL (0.0-0.2); ABSOLUTE LYMPHOCYTES (AUTO) 1.5 10^3/uL (0.5-4.7); ABSOLUTE MONOCYTES (AUTO) 0.3 10^3/uL (0.1-1.4); ABSOLUTE NEUT (AUTO) 5.9 10^3/uL (1.7-8.2); HEMATOCRIT 38.9 % (36.0-47.0); HEMOGLOBIN 12.7 g/dL (12.0-15.5); LYMPHOCYTES % (AUTO) 18.7 % (13-45); MEAN CORPUSCULAR HEMOGLOBIN 26.7 pg (27.0-33.4); MEAN CORPUSCULAR HGB CONC 32.7 g/dL (32.0-36.0); MEAN CORPUSCULAR VOLUME 82 fl (80-97); MONOCYTES % (AUTO) 3.3 % (3-13); PLATELET COUNT 265 10^3/uL (150-450); RED BLOOD COUNT 4.78 10^6/uL (3.72-5.28); RED CELL DISTRIBUTION WIDTH 15.7 % (11.5-14.0); TOTAL CELLS COUNTED % (AUTO) 100 %; WHITE BLOOD COUNT 7.8 10^3/uL (4.0-10.5)
[2020-02-16 08:35] LABS: ANION GAP 7 (5-19); BLOOD UREA NITROGEN 18 mg/dL (7-20); C-REACTIVE PROTEIN 8.6 mg/L (<10.0); CALCIUM 10.2 mg/dL (8.4-10.2); CARBON DIOXIDE 26 mmol/L (22-30); CHLORIDE 101 mmol/L (98-107); GLUCOSE 260 mg/dL (75-110); POTASSIUM 4.8 mmol/L (3.6-5.0)
[2020-02-16] MEDS: VITAMIN B COMPLEX TABLET PO SCH (10:15)
[2020-02-16] MEDS: CHOLECALCIFEROL (D3) 1,000 UNIT (25 MCG) TABLET PO SCH (10:15)
[2020-02-16] MEDS ORDERED: LISINOPRIL 20 MG PO SCH (11:22)
[2020-02-16] MEDS: LISINOPRIL 10 MG TABLET PO SCH (13:34)
[2020-02-16] MEDS: AMLODIPINE BESYLATE 10 MG TABLET PO SCH (13:35)
--- NOTE | 2020-02-16 15:05 | PDOC DISCHARGE SUMMARY ---
Impression - Admit/DC Date/PCP Admission Date/Primary Care Provider: 02/13/20 18:46 MARY JO SNYDER PA-C Discharge Date: 02/16/20 - Discharge Diagnosis (1) Pneumonia due to COVID-19 virus Is this a current diagnosis for this admission?: Yes (2) Right leg DVT Is this a current diagnosis for this admission?: Yes (3) Bilateral pulmonary embolism Is this a current diagnosis for this admission?: Yes (4) Morbid obesity with BMI of 40.0-44.9, adult Is this a current diagnosis for this admission?: Yes (5) Hypertension Is this a current diagnosis for this admission?: Yes (6) Type 2 diabetes mellitus Is this a current diagnosis for this admission?: Yes - Assessment Summary: We will continue the MATH+ protocol, consisting of ivermectin, IV Solu-Medrol, vitamin B complex, vitamin C, vitamin D3, zinc, and melatonin. Continue doxycycline. Now on room air, will start tapering steroids tomorrow. Continue Lovenox for another day and then transition her over to Eliquis or Xarelto. We will monitor for complications. Continue sliding scale insulin and adjust as necessary. - Additional Information Resuscitation Status: Full Code Discharge Diet: Cardiac, Diabetic Discharge Activity: Activity As Tolerated, Balance Activity w/Rest Referrals: MARY JO SNYDER PA-C [Primary Care Provider] - Follow up as needed Prescriptions: Apixaban [Eliquis 5 mg Tablet] 5 mg PO BID #60 tablet Prednisone See Protocol PO DAILY #48 tab.ds.pk Home Medications: Amlodipine Besylate [Norvasc 10 mg Tablet] 10 mg PO DAILY 02/14/20 Multivitamin [Multiple Vitamins] 1 tab PO DAILY 02/14/20 Potassium Chloride [Klor-Con M20] 10 meq PO DAILYP PRN 02/14/20 Cholecalciferol (Vitamin D3) [Vitamin D3 1000 Unit Tablet] 1,000 unit PO DAILY 02/15/20 Furosemide [Lasix 20 mg Tablet] 20 mg PO DAILYP PRN 02/15/20 Lisinopril 20 mg PO DAILY 02/15/20 Metformin HCl [Metformin HCl ER] 1,000 mg PO DAILY 02/15/20 [place]-3 Fatty Acids/Fish Oil [[place] 3 Fish Oil Softgel] 1 cap PO DAILY 02/15/20 Omeprazole 20 mg PO Q6AM 02/15/20 Vitamin E (Dl, Acetate) [Vitamin E 400 Unit Capsule] 400 unit PO DAILY 02/15/20 Apixaban [Eliquis 5 mg Tablet] 5 mg PO BID #60 tablet 02/16/20 Ascorbic Acid [Vitamin C 500 mg Tablet] 1,000 mg PO Q6 tablet 02/16/20 Melatonin [Melatonin 5 mg Tablet] 10 mg PO QHS tablet 02/16/20 Prednisone See Protocol PO DAILY #48 tab.ds.pk 02/16/20 Vitamin B Complex [Vitamin B Complex Tablet] 1 tab PO DAILY tablet 02/16/20 Zinc Sulfate [Zinc-220 Capsule] 220 mg PO DAILY capsule 02/16/20 History of Present Illiness History of Present Illness: CHRISTO LEMA is a 64 year old female who has been sick since January 12, 2020. She said that she went to see her eye doctor and somehow wind up getting tested there and a lot of testing positive for coronavirus. She was home for about a week and then she started having worsening shortness of breath. This went on for couple of days and finally she went to the hospital in [place]. She said she was there for 5 days and was sent home. She is not sure what medication she was given, but she knows she was given steroids because it made her blood sugar go up. She is not sure what steroid it was. She came home for a few days and the home health nurse came to see her and told her she needed to go back to the hospital. She was back in the hospital in [place] for a few more days and got some more steroids. She was home for a few days after the second hospitalization, and then after [place] she went to see her primary care provider who put her on some prednisone and a azithromycin. She went back to see her primary care provider was still little short of breath, and she said her right leg has been hurting. Her primary care provider was concerned about development of a blood clot and so sent her to the ER for evaluation. She indeed has a right lower extremity DVT, and her chest CT was positive for bilateral pulmonary emboli without evidence of right heart strain. She was found to have bilateral groundglass opacities on chest CT. Her oxygen saturations on room air were in the low 90s and she has a very mild visible dyspnea. Hospital Course Hospital Course: She had an excellent response to the MATH+ protocol. She received 2 doses of ivermectin and IV Solu-Medrol along with numerous vitamins. She went from having to be on about 3-1/2 to 4 L of nasal cannula down to room air and a couple of days. We anticoagulate her for her DVT and bilateral pulmonary emboli, and her D-dimer trended down. The pain in her right leg improved. She was able to ambulate up and down the hallway without discomfort or hypoxemia. She will complete a prednisone taper at home and was advised that it will likely affect her blood sugars. She said that she has been on some insulin at home just as a sliding scale, and I recommended that she continue that along with her Metformin. She will need 6 months of anticoagulation, and we have prescribed Eliquis. She will follow-up with her primary care provider in approximately 1 week. Her labs and examination were reassuring and she was discharged in stable condition. Physical Exam Vital Signs: Temp Pulse Resp BP Pulse Ox 97.4 F 73 18 136/76 H 96 02/16/20 10:40 02/16/20 10:40 02/16/20 10:40 02/16/20 10:40 02/16/20 10:40 Intake & Output 02/15/20 02/16/20 02/17/20 06:59 06:59 06:59 Intake Total 2403 1590 490 Balance 2403 1590 490 Weight 125.3 kg General appearance: PRESENT: cooperative, disheveled, mild distress, morbidly obese Respiratory exam: PRESENT: Clear to auscultation bilaterally, symmetrical, unlabored. ABSENT: accessory muscle use, chest wall tenderness, prolonged expiratory phase, rhonchi, wheezes, tachypnea Cardiovascular exam: PRESENT: RRR, +S1, +S2 Pulses: PRESENT: normal carotid pulses Vascular exam: PRESENT: normal capillary refill GI/Abdominal exam: PRESENT: normal bowel sounds, soft. ABSENT: distended, gu arding, rebound, tenderness Extremities exam: PRESENT: pedal edema, +1 edema - Right lower extremity. ABSENT: clubbing Musculoskeletal exam: PRESENT: normal inspection. ABSENT: deformity Neurological exam: PRESENT: alert, awake, oriented to person, oriented to place, oriented to time, oriented to situation Psychiatric exam: PRESENT: appropriate affect, normal mood Skin exam: PRESENT: dry, warm Results Laboratory Results: WBC 7.8 10^3/uL (4.0-10.5) 02/16/20 07:30 RBC 4.78 10^6/uL (3.72-5.28) 02/16/20 07:30 Hgb 12.7 g/dL (12.0-15.5) 02/16/20 07:30 Hct 38.9 % (36.0-47.0) 02/16/20 07:30 MCV 82 fl (80-97) 02/16/20 07:30 MCH 26.7 pg (27.0-33.4) L 02/16/20 07:30 MCHC 32.7 g/dL (32.0-36.0) 02/16/20 07: RDW 15.7 % (11.5-14.0) H 02/16/20 07:30 Plt Count 265 10^3/uL (150-450) 02/16/20 07:30 Lymph % (Auto) 18.7 % (13-45) 02/16/20 07:30 [place] % (Auto) 3.3 % (3-13) 02/16/20 07:30 Eos % (Auto) 0.0 % (0-6) 02/16/20 07:30 Baso % (Auto) 2.0 % (0-2) 02/16/20 07:30 Absolute Neuts (auto) 5.9 10^3/uL (1.7-8.2) 02/16/20 07:30 Absolute Lymphs (auto) 1.5 10^3/uL (0.5-4.7) 02/16/20 07:30 Absolute Monos (auto) 0.3 10^3/uL (0.1-1.4) 02/16/20 07:30 Absolute Eos (auto) 0.0 10^3/uL (0.0-0.6) 02/16/20 07:30 Absolute Basos (auto) 0.2 10^3/uL (0.0-0.2) 02/16/20 07:30 Total Counted 100 02/13/20 16:09 Seg Neutrophils % 76.0 % (42-78) 02/16/20 07:30 Seg Neuts % (Manual) 50 % (42-78) 02/13/20 16:09 Lymphocytes % (Manual) 40 % (13-45) 02/13/20 16:09 Atypical Lymphs % 2 % (0) 02/13/20 16:09 Monocytes % (Manual) 7 % (3-13) 02/13/20 16:09 Eosinophils % (Manual) 0 % (0-6) 02/13/20 16:09 Basophils % (Manual) 1 % (0-2) 02/13/20 16:09 Abs Neuts (Manual) 3.8 10^3/uL (1.7-8.2) 02/13/20 16:09 Abs Lymphs (Manual) 3.2 10^3/uL (0.5-4.7) 02/13/20 16:09 Abs Monocytes (Manual) 0.5 10^3/uL (0.1-1.4) 02/13/20 16:09 Absolute Eos (Manual) 0.0 10^3/uL (0.0-0.6) 02/13/20 16:09 Abs Basophils (Manual) 0.1 10^3/uL (0.0-0.2) 02/13/20 16:09 Platelet Comment ADEQUATE 02/13/20 16:09 Hypochromasia 1+ 02/13/20 16:09 Microcytosis 1+ 02/13/20 16:09 PT 14.0 SEC (11.4-15.4) 02/13/20 16:09 INR 1.06 02/13/20 16:09 APTT 36.1 SEC (23.5-35.8) H 02/14/20 07:15 D-Dimer 3.14 ug/mL (0.00-0.50) H 02/16/20 07:30 Sodium 133.8 mmol/L (137-145) L 02/16/20 07:30 Potassium 4.8 mmol/L (3.6-5.0) 02/16/20 07:30 Chloride 101 mmol/L (98-107) 02/16/20 07:30 Carbon Dioxide 26 mmol/L (22-30) 02/16/20 07:30 Anion Gap 7 (5-19) 02/16/20 07:30 BUN 18 mg/dL (7-20) 02/16/20 07:30 Creatinine 0.72 mg/dL (0.52-1.25) 02/16/20 07:30 Est GFR ( Amer) > 60 (>60) 02/16/20 07:30 Est GFR (MDRD) Non-Af > 60 (>60) 02/16/20 07:30 Glucose 260 mg/dL (75-110) H 02/16/20 07:30 POC Glucose 273 mg/dL (70-110) H 02/16/20 10:41 Lactic Acid 1.2 mmol/L (0.7-2.1) 02/13/20 18:00 Calcium 10.2 mg/dL (8.4-10.2) 02/16/20 07:30 Ferritin 189.00 ng/mL (11.1-264.0) 02/16/20 07:30 Total Bilirubin 0.7 mg/dL (0.2-1.3) 02/13/20 16:09 Direct Bilirubin 0.2 mg/dL (0.0-0.4) 02/13/20 16:09 Neonat Total Bilirubin Not Reportable 02/13/20 16:09 Neonat Direct Bilirubin Not Reportable 02/13/20 16:09 Neonat Indirect Bili Not Reportable 02/13/20 16:09 AST 20 U/L (14-36) 02/13/20 16:09 ALT 18 U/L (<35) 02/13/20 16:09 Alkaline Phosphatase 74 U/L (38-126) 02/13/20 16:09 Troponin I < 0.012 ng/mL 02/13/20 16:09 C-Reactive Protein 8.6 mg/L (<10.0) 02/16/20 07:30 NT-Pro-B Natriuret Pep 66 pg/mL (<125) 02/13/20 16:09 Total Protein 7.8 g/dL (6.3-8.2) 02/13/20 16:09 Albumin 4.0 g/dL (3.5-5.0) 02/13/20 16:09 Urine Color YELLOW 02/15/20 11:58 Urine Appearance CLEAR 02/15/20 11:58 Urine pH 6.0 (5.0-9.0) 02/15/20 11:58 Ur Specific [place] 1.018 02/15/20 11:58 Urine Protein NEGATIVE mg/dL (NEGATIVE) 02/15/20 11:58 Urine Glucose (UA) >=500 mg/dL (NEGATIVE) H 02/15/20 11:58 Urine Ketones NEGATIVE mg/dL (NEGATIVE) 02/15/20 11:58 Urine Blood NEGATIVE (NEGATIVE) 02/15/20 11:58 Urine Nitrite NEGATIVE (NEGATIVE) 02/15/20 11:58 Urine Bilirubin NEGATIVE (NEGATIVE) 02/15/20 11:58 Urine Urobilinogen NEGATIVE mg/dL (<2.0) 02/15/20 11:58 Ur Leukocyte Esterase NEGATIVE (NEGATIVE) 02/15/20 11:58 Urine WBC (Auto) 1 /HPF 02/15/20 11:58 Urine RBC (Auto) 0 /HPF 02/15/20 11:58 U Hyaline Cast (Auto) 1 /LPF 02/13/20 20:50 Squamous Epi Cells Auto <1 /HPF 02/15/20 11:58 Urine Mucus (Auto) RARE /LPF 02/15/20 11:58 Urine Ascorbic Acid 40 (NEGATIVE) H 02/15/20 11:58 Influenza A (RT-PCR) NEGATIVE (NEGATIVE) 02/13/20 19:59 Influenza B (RT-PCR) NEGATIVE (NEGATIVE) 02/13/20 19:59 RSV (RT-PCR) NEGATIVE (NEGATIVE) 02/13/20 19:59 SARS-CoV-2 Rap RNA(RT-PCR) POSITIVE (NEGATIVE) H 02/13/20 19:59 02/13/20 16:09 Troponin I < 0.012 NT-Pro-B Natriuret Pep 66 Impressions: Chest/Abdomen CTA 02/13/20 14:23 IMPRESSION: 1. Acute pulmonary embolism involving right-sided pulmonary arteries as described. Moderate clot burden. 2. Bilateral ground-glass infiltrates consistent with the history of COVID-19 pneumonia. Venous Doppler Study 02/13/20 14:23 IMPRESSION: Acute occlusive DVT from the right calf through the distal femoral vein. Plan Time Spent: Greater than 30 Minutes Stroke Is this a Stroke Patient?: No Acute Heart Failure Is this a Heart Failure Patient?: No
[2020-02-17] MEDS: ASCORBIC ACID 500 MG TABLET PO SCH ×2 (05:27→11:38)
[2020-02-17 06:59] LABS: HEMATOCRIT 38.5 % (36.0-47.0); MEAN CORPUSCULAR HEMOGLOBIN 27.4 pg (27.0-33.4); MEAN CORPUSCULAR HGB CONC 33.7 g/dL (32.0-36.0); MEAN CORPUSCULAR VOLUME 81 fl (80-97); PLATELET COUNT 293 10^3/uL (150-450); RED BLOOD COUNT 4.73 10^6/uL (3.72-5.28); RED CELL DISTRIBUTION WIDTH 15.8 % (11.5-14.0); WHITE BLOOD COUNT 9.5 10^3/uL (4.0-10.5)
[2020-02-17] MEDS: INSULIN LISPRO 100 UNIT/ML 3 ML VIAL SUBCUT SCH ×4 (09:09→11:39)
[2020-02-17] MEDS: VITAMIN B COMPLEX TABLET PO SCH (09:47)
[2020-02-17] MEDS: AMLODIPINE BESYLATE 10 MG TABLET PO SCH (09:47)
[2020-02-17] MEDS: LISINOPRIL 10 MG TABLET PO SCH (09:48)
[2020-02-17] MEDS: ENOXAPARIN SODIUM INJ 120 MG/0.8 ML DISP.SYRIN SUBCUT SCH (09:48)
[2020-02-17] MEDS: CHOLECALCIFEROL (D3) 1,000 UNIT (25 MCG) TABLET PO SCH (09:48)
[2020-02-17] MEDS: METHYLPREDNISOLONE INJ 40 MG/1 ML SDV IV SCH (09:48)
[2020-02-17] MEDS: DOXYCYCLINE HYCLATE 100 MG in DEXTROSE 5%-WATER 250 ML IV SCH (09:49)
--- NOTE | 2020-02-17 11:41 | PDOC PROGRESS REPORT ---
Subjective Date:: 02/17/20 Subjective:: Discharge yesterday was delayed. The patient is in fact discharging today. No adverse events last night. Reason For Visit: COVID 19,PE,DVT Physical Exam Vital Signs: Temp Pulse Resp BP Pulse Ox 98.2 F 78 17 186/84 H 94 02/17/20 10:00 02/17/20 09:27 02/17/20 09:27 02/17/20 09:27 02/17/20 09:27 Intake & Output 02/16/20 02/17/20 02/18/20 06:59 06:59 06:59 Intake Total 1590 1950 Output Total 237 Balance 1590 1713 Weight 124.1 kg General appearance: PRESENT: no acute distress Respiratory exam: PRESENT: clear to auscultation [place], symmetrical, unlabored. ABSENT: rales, rhonchi, tachypnea, wheezes Cardiovascular exam: PRESENT: RRR, +S1, +S2 GI/Abdominal exam: PRESENT: normal bowel sounds, soft. ABSENT: tenderness Rectal exam: PRESENT: deferred Gentrourinary exam: ABSENT: indwelling catheter Neurological exam: PRESENT: alert, awake, oriented to person, oriented to place, oriented to time, oriented to situation, CN II-XII grossly intact Psychiatric exam: PRESENT: appropriate affect. ABSENT: agitated, anxious Results Laboratory Results: 02/17/20 06:26 02/16/20 07:30 02/17/20 06:26 WBC 9.5 RBC 4.73 Hgb 13.0 Hct 38.5 MCV 81 MCH 27.4 MCHC 33.7 RDW 15.8 H Plt Count 293 02/13/20 16:09 Troponin I < 0.012 NT-Pro-B Natriuret Pep 66 Impressions: Chest/Abdomen CTA 02/13/20 14:23 IMPRESSION: 1. Acute pulmonary embolism involving right-sided pulmonary arteries as described. Moderate clot burden. 2. Bilateral ground-glass infiltrates consistent with the history of COVID-19 pneumonia. Venous Doppler Study 02/13/20 14:23 IMPRESSION: Acute occlusive DVT from the right calf through the distal femoral vein. Assessment and Plan - Diagnosis (1) Bilateral pulmonary embolism Is this a current diagnosis for this admission?: Yes (2) Hypertension Qualifiers: Hypertension type: essential hypertension Qualified Code(s): I10 - Essential (primary) hypertension Is this a current diagnosis for this admission?: Yes (3) Morbid obesity with BMI of 40.0-44.9, adult Is this a current diagnosis for this admission?: Yes (4) Pneumonia due to COVID-19 virus Is this a current diagnosis for this admission?: Yes (5) Right leg DVT Qualifiers: Affected thrombotic vein of extremity: popliteal Chronicity: acute Qual ified Code(s): I82.431 - Acute embolism and thrombosis of right popliteal vein Is this a current diagnosis for this admission?: Yes (6) Type 2 diabetes mellitus Qualifiers: Diabetes mellitus manager long term care insulin use: without skilled nursing use Diabetes mellitus complication status: without complication Qualified Code(s): E11.9 - Type 2 diabetes mellitus without complications Is this a current diagnosis for this admission?: Yes - Plan Summary Summary: We will continue the MATH+ protocol, consisting of ivermectin, IV Solu-Medrol, vitamin B complex, vitamin C, vitamin D3, zinc, and melatonin. Continue doxycycline. Now on room air, will start tapering steroids tomorrow. Continue Lovenox for another day and then transition her over to Eliquis or Xarelto. We will monitor for complications. Continue sliding scale insulin and adjust as necessary. February 17, 2020 Stable for discharge. Options called in yesterday. Will call in additional Humalog pens in case the need for insulin at last her current NovoLog supply. - Time Time Spent with patient: 15-24 minutes Medications reviewed and adjusted accordingly: Yes Anticipated Discharge Disposition: Home, Self Care Anticipated Discharge Timeframe: today
[2020-02-17 12:44] VITALS: BP 129/68
== END 2020-02-17 12:52 | disposition home or self-care (01) | DRG 177 ==
LOC: ER 12:25 → EH 18:46 → 4S 20:19
PROVIDERS: ADMIT Family Medicine; ATTEND Hospitalist
DX: U07.1 COVID-19 (principal); J12.82 Pneumonia due to coronavirus disease 2019; I26.99 Other pulmonary embolism without acute cor pulmonale; I82.431 Acute embolism and thrombosis of right popliteal vein; I10 Essential (primary) hypertension; E11.9 Type 2 diabetes mellitus without complications; E66.01 Morbid (severe) obesity due to excess calories; Z96.652 Presence of left artificial knee joint; Z87.891 Personal history of nicotine dependence; Z79.899 Other long term (current) drug therapy; Z79.84 Long term (current) use of oral hypoglycemic drugs; Z79.01 Long term (current) use of anticoagulants; Z79.52 Long term (current) use of systemic steroids; Z79.891 Long term (current) use of opiate analgesic; Z88.8 Allergy status to other drugs, medicaments and biological substances; Z91.048 Other nonmedicinal substance allergy status
CPT/HCPCS: 36415; 71275; 80048; 80053; 81001; 82728; 82962; 83605; 83880; 84484; 85025; 85027; 85379; 85610; 85730; 86140; 93005; 93010; 93971; 96361; 96374; 96375; 99285; 0241U; C9803; J1644; J1650; J1815; J2270; J2405; J2920; J3490; J7050; J7060